=== PATIENT | female | born 1980 | race Hispanic/Latino ===

== ENCOUNTER 2017-08-17 01:16 | Emergency (ER) | payer SELFPAY ==
[2017-08-17 02:39] VITALS: BP 136/70
[2017-08-17] MEDS ORDERED: TYLENOL ONE (02:42)
== END 2017-08-17 02:32 | disposition left against medical advice (07) ==
LOC: ED 01:16
DX: R10.9 Unspecified abdominal pain (principal); Z53.21 Procedure and treatment not carried out due to patient leaving prior to being seen by health care provider

== ENCOUNTER 2017-12-02 06:15 | Inpatient (IN) | payer SELFPAY ==
[2017-12-02] MEDS ORDERED: METHERGINE IM ONE ×2 (06:56→07:22)
--- NOTE | 2017-12-02 07:06 | History and Physical Report ---
History of Present Illness Date of examination: 12/02/17 Date of admission: 12/02/17 06:17 Chief complaint: Labor History of present illness: Pt is a 37yo WF EDC 01/02/18; EGA 35 4/7 weeks presents to L&D complaining of SROM clear fluid followed by RUC's q 3-4 mins. She did not have care with this - states she didn't know she was . Past History Past Medical History: no pertinent history Past Surgical History: no surgical history Family/Genetic History: none Social history: no significant social history, single - Obstetrical History Expected Date of Delivery: 01/02/18 Actual Gestation: 35 Week(s) 4 Day(s) Medications and Allergies Allergies Allergy/AdvReac Type Severity Reaction Status Date / Time No Known Allergies Allergy Verified 08/17/17 02:51 Home Medications Medication Instructions Recorded Confirmed Last Taken Type No Known Home Medications [No 08/17/17 08/17/17 Unknown History Reported Home Medications] Review of Systems All systems: negative - Vital Signs Vital signs: Vital Signs Pulse Pulse Ox 84 95 12/02/17 06:22 12/02/17 06:22 Temp Pulse Resp BP Pulse Ox 86 94 12/02/17 06:48 12/02/17 06:48 - Physical Exam Breasts: Positive: deferred Cardiovascular: Regular rate Lungs: Positive: Clear to auscultation Abdomen: Positive: normal appearance Genitourinary (Female): Positive: normal external genitalia Uterus: Positive: enlarged Extremities: Positive: normal - Obstetrical FHR: category 1 Uterine Contraction Monitor Mode: External Cervical Dilatation: 10 Cervical Effacement Percentage: 100 station: 0 Uterine Contraction Pattern: Regular Uterine Tone Measurement Phase: Contraction Uterine Contraction Intensity: Strong/Firm Results All other labs normal. Assessment and Plan - Patient Problems (1) 35 weeks gestation of Onset Date: 12/02/17 Current Visit: Yes Status: Acute Plan to address problem: A: IUP @ 35 4/7 weeks in labor No care P: Admit to L&D for expectant vaginal delivery NICU consultation
--- NOTE | 2017-12-02 07:12 | Procedure Note ---
OB Delivery Note - Delivery Date of Delivery: 12/02/17 Surgeon: NISSA FERNÁNDEZ Estimated blood loss: other (400cc) - Vaginal Delivery presentation: vertex Delivery position: OA Intrapartum events: no care, labor-<37 weeks, PROM->1hr before delivery, precipitous labor- <3hr Delivery induction: none Delivery augmentation: rupture of membranes Delivery monitor: external FHT, external uterine Route of delivery: Delivery placenta: spontaneous Delivery cord: 3 umbilical vessels Episiotomy: none Delivery laceration: none Anesthesia: none Delivery comments: delivered OA and handed to awaiting Peds/RT in attendance - Infant A at 1 minute: 8 at 5 minutes: 9 Infant Gender: Male (2547gms)
[2017-12-02] MEDS ORDERED: XYLOCAINE 2% INFILTRATI ONE (07:13)
[2017-12-02] MEDS ORDERED: ePHEDrine SULFATE IV PRN (07:13)
[2017-12-02] MEDS ORDERED: BRETHINE SUB-Q PRN (07:13)
[2017-12-02] MEDS ORDERED: MINERAL OIL PO PRN (07:13)
[2017-12-02] MEDS ORDERED: BRETHINE IVP PRN (07:13)
[2017-12-02] MEDS ORDERED: LANSINOH TP PRN (07:18)
[2017-12-02] MEDS ORDERED: MILK OF MAGNESIA PO PRN (07:18)
[2017-12-02] MEDS ORDERED: ZOFRAN IV PRN (07:18)
[2017-12-02] MEDS ORDERED: DULCOLAX PR PRN (07:18)
[2017-12-02] MEDS ORDERED: TYLENOL PO PRN (07:18)
[2017-12-02] MEDS ORDERED: NORCO 5/325 PO PRN (07:18)
[2017-12-02] MEDS ORDERED: TUCKS PAD TP PRN (07:18)
[2017-12-02] MEDS ORDERED: PHENERGAN PR PRN (07:18)
[2017-12-02] MEDS ORDERED: BENADRYL PO PRN (07:18)
[2017-12-02] MEDS ORDERED: PHENERGAN PO PRN (07:18)
[2017-12-02] MEDS ORDERED: LACTATED RINGERS 1,000 ML IV SCH (08:00)
[2017-12-02] MEDS ORDERED: SODIUM CHLORIDE FLUSH SYRINGE 10 ML IV NR (08:00)
[2017-12-02] MEDS ORDERED: PITOCin/NS 30 UNIT/500ML 30 UNITS/500 ML BAG IV SCH (08:00)
[2017-12-02] MEDS ORDERED: PITOCin/NS 20 UNIT/1000ML DRIP 20 UNITS/1,000 ML BAG IV SCH ×2 (08:00)
[2017-12-02 08:09] LABS: Rubella IgG Antibody Immune (Immune)
[2017-12-02] MEDS: MOTRIN PO SCH ×3 (09:04→22:30)
[2017-12-02 09:07] LABS: Benzodiazepines Screen,Urine PRESUMPTIVE NEGATIVE; Cannabinoid Screen,Urine PRESUMPTIVE NEGATIVE; Cocaine Screen,Urine PRESUMPTIVE NEGATIVE; Methadone Screen,Urine PRESUMPTIVE NEGATIVE; Opiate Screen,Urine PRESUMPTIVE NEGATIVE
[2017-12-02 09:25] LABS: Amphetamine Screen,Urine PRESUMPTIVE POSITIVE
[2017-12-02] MEDS ORDERED: PRENATAL VITAMIN PO SCH (10:00)
[2017-12-02 10:17] LABS: Hepatitis C Virus Antibody Non-Reactive (NonReactive)
[2017-12-02 14:55] LABS: Hematocrit 26.1 % (30.3-42.9); Hemoglobin 7.7 gm/dl (10.1-14.3); Mean Corpuscular HGB Conc 30 % (30-34); Mean Corpuscular Hemoglobin 20 pg (28-32); Mean Corpuscular Volume 67 fl (79-97); Platelet Count 177 K/mm3 (140-440); Red Blood Count 3.91 M/mm3 (3.65-5.03); Red Cell Distribution Width 19.1 % (13.2-15.2)
[2017-12-02 18:17] LABS: Hematocrit 22.5 % (30.3-42.9); Hemoglobin 6.9 gm/dl (10.1-14.3)
[2017-12-02] MEDS: COLACE PO SCH (22:30)
[2017-12-02] MEDS: FEOSOL PO SCH (22:30)
[2017-12-03] MEDS ORDERED: BOOSTRIX IM ONE ×2 (06:00→07:18)
[2017-12-03] MEDS: MOTRIN PO SCH ×3 (06:30→21:19)
[2017-12-03] MEDS ORDERED: M-M-R II VACCINE SUB-Q ONE (07:18)
--- NOTE | 2017-12-03 07:21 | Progress Note ---
Assessment and Plan - Patient Problems (1) 35 weeks gestation of Onset Date: 12/02/17 Current Visit: Yes Status: Resolved (2) (normal spontaneous vaginal delivery) Onset Date: 12/03/17 Current Visit: Yes Status: Resolved Plan to address problem: A: S/P - PPD #1 Doing well Asymptomatic anemia - stable P: May go home tomorrow Subjective - Subjective Date of service: 12/03/17 Principal diagnosis: s/p - PPD #1 Interval history: Pt is feeling well without complaints. Bleeding improved. Patient reports: appetite normal, voiding normally, pain well controlled, flatus , ambulating normally, no nauseated [place]: doing well, bottle feeding Objective - Vital Signs Latest vital signs: Vital Signs Temp Pulse Resp BP BP Pulse Ox 12/03/17 00:56 98.5 F 100 H 20 121/62 97 12/02/17 15:11 98.5 F 97 H 14 115/79 98 12/02/17 11:58 98.5 F 94 H 18 117/79 99 12/02/17 09:15 98.4 F 78 18 135/87 12/02/17 08:31 100 H 125/75 12/02/17 08:17 101 H 135/82 12/02/17 08:12 101 H 136/86 12/02/17 08:08 97.3 F L 20 Intake and Output 12/02/17 12/03/17 12/03/17 22:59 06:59 14:59 Intake Total 960 480 Balance 960 480 Intake: Oral 960 480 Other: Total, Intake Amount 240 240 # Voids Void 1 1 # Bowel Movements 0 - Exam Breasts: Present: deferred Cardiovascular: Present: Regular rate Lungs: Present: Clear to auscultation Abdomen: Present: normal appearance, soft Uterus: Present: normal, firm, fundal height below umbilicus Extremities: Present: normal - Labs Labs: Abnormal lab results 12/02/17 12/02/17 Range/Units 06:30 17:48 WBC 12.7 H (4.5-11.0) K/mm3 Hgb 7.7 L 6.9 L (10.1-14.3) gm/dl Hct 26.1 L 22.5 L (30.3-42.9) % MCV 67 L (79-97) fl MCH 20 L (28-32) pg RDW 19.1 H (13.2-15.2) % Laboratory Tests 12/02/17 12/02/17 12/02/17 06:30 06:30 06:30 WBC 12.7 H RBC 3.91 Hgb 7.7 L Hct 26.1 L MCV 67 L MCH 20 L MCHC 30 RDW 19.1 H Plt Count 177 Urine Opiates Screen Urine Methadone Screen Ur Barbiturates Screen Ur Phencyclidine Scrn Ur Amphetamines Screen U Benzodiazepines Scrn Urine Cocaine Screen U Marijuana (THC) Screen Drugs of Abuse Note RPR Nonreactive Hep Bs Antigen Hepatitis C Antibody HIV 1&2 Antibody Rapid HIV P24 Antigen Rubella IgG Antibody Blood Type O NEGATIVE Antibody Screen Negative Screen 12/02/17 12/02/17 12/02/17 06:30 06:30 06:30 WBC RBC Hgb Hct MCV MCH MCHC RDW Plt Count Urine Opiates Screen Urine Methadone Screen Ur Barbiturates Screen Ur Phencyclidine Scrn Ur Amphetamines Screen U Benzodiazepines Scrn Urine Cocaine Screen U Marijuana (THC) Screen Drugs of Abuse Note RPR Hep Bs Antigen Non-reactive Hepatitis C Antibody Non-reactive HIV 1&2 Antibody Rapid Non react HIV P24 Antigen Non react Rubella IgG Antibody Immune Blood Type Antibody Screen Screen 12/02/17 12/02/17 12/02/17 17:48 17:48 Unknown WBC RBC Hgb 6.9 L Hct 22.5 L MCV MCH MCHC RDW Plt Count Urine Opiates Screen Presumptive negative Urine Methadone Screen Presumptive negative Ur Barbiturates Screen Presumptive negative Ur Phencyclidine Scrn Presumptive negative Ur Amphetamines Screen Presumptive positive U Benzodiazepines Scrn Presumptive negative Urine Cocaine Screen Presumptive negative U Marijuana (THC) Screen Presumptive negative Drugs of Abuse Note Disclamer RPR Hep Bs Antigen Hepatitis C Antibody HIV 1&2 Antibody Rapid HIV P24 Antigen Rubella IgG Antibody Blood Type O NEGATIVE Antibody Screen Negative Screen Negative
[2017-12-03] MEDS: FEOSOL PO SCH ×2 (10:30→21:19)
[2017-12-03] MEDS: COLACE PO SCH ×2 (10:30→21:19)
--- NOTE | 2017-12-03 18:40 | Discharge Summary ---
Providers - Providers Date of Admission: 12/02/17 06:17 Date of discharge: 12/04/17 Attending physician: NISSA FERNÁNDEZ 12/02/17 13:17 Consult to Case Management [CONS] Routine Services Needed at Discharge: Paleologist Notified:: [employer] [facility] Phone number called:: ext [phone] Primary care physician: NISSA FERNÁNDEZ Hospitalization Reason for admission: active labor, rupture of membranes, IUP at term, other ( No care) Delivery: Episiotomy: none Laceration: none Other procedures: none complications: none Discharge diagnosis: IUP at term delivered baby: male Hospital course: Unremarkable. Condition at discharge: Good Disposition: DC-01 TO HOME OR SELFCARE - Discharge Diagnoses (1) 35 weeks gestation of Status: Resolved (2) (normal spontaneous vaginal delivery) Status: Resolved Plan - Discharge Medications Prescriptions: Ferrous Sulfate [Feosol 325 MG tab] 325 mg PO BID #60 tablet Ibuprofen [Motrin 600 MG tab] 600 mg PO Q6H #30 tablet Vit-Fe Fumar-FA [ Vitamin] 1 each PO QDAY #30 tablet - Provider Discharge Summary Activity: routine, no sex for 6 weeks, no heavy lifting 4 weeks, no strenuous exercise Diet: routine Instructions: routine Additional instructions: [] Smoking cessation referral if applicable(refer to patient education folder for contact #) [] Refer to [facility] Booklet Call your doctor immediately for: * Fever > 100.5 * Heavy vaginal bleeding ( >1 pad per hour) * Severe persistent headache * Shortness of breath * Reddened, hot, painful area to leg or breast * Drainage or odor from incision. * Keep incision clean and dry at all times and follow doctor's instructions regarding bathing/showering - Follow up plan Follow up: NISSA FERNÁNDEZ MD [Primary Care Provider] - 6 Weeks
[2017-12-03 19:18] VITALS: BP 123/75
== END 2017-12-03 23:15 | disposition left against medical advice (07) | DRG 775 ==
LOC: TRG 06:15 → LD 06:17 → OB 09:14
PROVIDERS: ADMIT Obstetrics & Gynecology; ATTEND Obstetrics & Gynecology
PROC: 10E0XZZ Delivery of Products of Conception, External Approach (ICD-10-PCS; principal; 2017-12-02)
PROC: 30233S1 Transfusion of Nonautologous Globulin into Peripheral Vein, Percutaneous Approach (ICD-10-PCS; 2017-12-02)
PROC: 3E0234Z Introduction of Serum, Toxoid and Vaccine into Muscle, Percutaneous Approach (ICD-10-PCS; 2017-12-03)
DX: O62.3 Precipitate labor (principal); O60.14X0 Preterm labor third trimester with preterm delivery third trimester, not applicable or unspecified; Z3A.35 35 weeks gestation of pregnancy; Z37.0 Single live birth; O99.03 Anemia complicating the puerperium; D64.9 Anemia, unspecified; Z23 Encounter for immunization
CPT/HCPCS: 36415; 80307; 85014; 85018; 85027; 85461; 86592; 86706; 86762; 86803; 86850; 86900; 86901; 87806; 88307; 90715; J2210; J2590; J2790